=== PATIENT | female | born 1950 | race Caucasian/White ===

== ENCOUNTER 2017-02-04 16:19 | Emergency (ER) | payer MEDICARE, BC ==
--- NOTE | ~2017-02-04 | CR72 ---
[facility] A Service of [facility] / [facility] RADIOLOGY TEXT RESULTS PATIENT: KVNG CESPEDES LOCATION: SED : 52 UNIT #: [id number] AGE: [address]: Edil Chiang MD SEX: F ORDER DR: [id number] [place] [id number] MR#: [id number] Acc #: [id number] NAME: KVNG CESPEDES : 1950 SEX: F STUDY DATE/TIME: 02/04/2017 15:42 UNIT: SED ROOM: STUDY DESCRIPTION: CR Chest Single View Portable Attending Physician: Edil Chaing M.D. Ordering Physician: Edil Chiang M.D. Primary Care Physician: Bharathi Arrington M.D. MEDICAL IMAGING REPORT This report is preliminary unless electronic signature is present. EXAM Portable chest 02/04/2017 INDICATIONS Shortness of air that started earlier this morning. History of hypertension and atrial fibrillation. COMPARISON 03/19/2014 FINDINGS A single AP portable view of the chest shows both lungs to be clear. The heart is normal in size. The mediastinal contour is normal. No significant bone abnormalities are seen. IMPRESSION Normal portable chest. Dictated by... Delta Taylor Jr., M.D. THIS IS AN ELECTRONICALLY VERIFIED REPORT Delta Taylor Jr., M.D. at 02/05/2017 4:47 PM [place]/radha TD: 02/04/2017 17:07 JOB #: [id number] MEDICAL IMAGING REPORT Page 1 of 1
--- NOTE | ~2017-02-04 | EKG ---
PATIENT: KVNG CESPEDES UNIT #: [id number] Ventricular Rate: 67 BPM Atrial Rate: 67 BPM P-R Interval: 124 ms QRS Duration: 84 ms Q-T Interval: 374 ms QTC Calculation(Bezet): 395 ms P [place]: 71 degrees Calculated R [place]: -11 degrees Calculated T [place]: -12 degrees Diagnosis Line: Sinus rhythm with marked sinus arrhythmia Diagnosis Line: Nonspecific T wave abnormality Diagnosis Line: Otherwise normal ECG Diagnosis Line: When compared with ECG of 04-FEB-2017 15:10, Diagnosis Line: (unconfirmed) Diagnosis Line: Sinus rhythm has replaced Atrial fibrillation Diagnosis Line: Vent. rate has decreased BY 92 BPM Diagnosis Line: ST no longer depressed in Anterolateral leads Diagnosis Line: T wave inversion no longer evident in Anterior Diagnosis Line: leads Diagnosis Line: Confirmed by HALEY DESOUZA MD ([id number]) on 02/11/2017 Diagnosis Line: 11:54:03 AM INTERPRETING MD: DEO PERKINS
--- NOTE | ~2017-02-04 | EKG ---
PATIENT: KVNG CESPEDES UNIT #: [id number] Ventricular Rate: 159 BPM Atrial Rate: 187 BPM QRS Duration: 78 ms Q-T Interval: 254 ms QTC Calculation(Bezet): 413 ms Calculated R [place]: -9 degrees Calculated T [place]: -127 degrees Diagnosis Line: Atrial fibrillation with rapid ventricular Diagnosis Line: response Diagnosis Line: Posterior infarct , age undetermined Diagnosis Line: ST and T wave abnormality, consider inferolateral Diagnosis Line: ischemia or digitalis effect Diagnosis Line: Abnormal ECG Diagnosis Line: When compared with ECG of 07-AUG-2013 22:00, Diagnosis Line: Atrial fibrillation has replaced Sinus rhythm Diagnosis Line: Vent. rate has increased BY 83 BPM Diagnosis Line: T wave inversion now evident in Anterolateral Diagnosis Line: leads Diagnosis Line: Confirmed by HALEY DESOUZA MD ([id number]) on 02/11/2017 Diagnosis Line: 11:53:40 AM INTERPRETING MD: EDO PERKINS
[2017-02-04 15:31] LABS: BASOPHIL# 0.1 X10e3 (0-0.3); BASOPHIL% 1.1 % (0-2.5); EOSINOPHIL# 0.1 X10e3 (0-0.7); EOSINOPHIL% 1.4 % (0.0-7.0); HEMATOCRIT 44.5 % (35.0-45.0); HEMOGLOBIN 14.5 gm/dL (12.0-16.0); LYMPHOCYTE# 1.8 X10e3 (1.0-3.5); LYMPHOCYTE% 20.7 % (17.0-45.0); MEAN CELL VOLUME 90.5 FL (83-96); MEAN CORPUSCULAR HEMOGLOBIN 29.5 PG (28-34); MEAN CORPUSCULAR HGB CONC 32.6 g/dL (30-36); MEAN PLATELET VOLUME 9.2 FL (6.5-11.5); MONOCYTE# 0.7 X10e3 (0-1.0); MONOCYTE% 8.3 % (3.0-12.0); NEUTROPHIL# 5.8 X10e3 (1.5-7.1); NEUTROPHIL% 68.5 % (40-75); PLATELET COUNT 187 X10e3 (140-420); RED BLOOD COUNT 4.92 X10e (3.90-5.30); RED CELL DISTRIBUTION WIDTH 16.3 % (11.0-15.5); WHITE BLOOD COUNT 8.5 X10e3 (4.0-10.5)
[2017-02-04 15:32] LABS: DIFF IND NO
[2017-02-04 15:45] LABS: POC - CKMB 1.1 ng/mL (0.0-7.9); POC - TROPONIN <0.05 ng/mL (<=0.05)
[2017-02-04 15:45] LABS: INR 1.2; PROTHROMBIN TIME (PATIENT) 13.5 SECONDS (9.5-12.4)
[2017-02-04 15:55] LABS: ALBUMIN SERUM 4.1 g/dL (3.5-5.0); BILIRUBIN, DIRECT 0.1 mg/dL (0.0-0.2); BILIRUBIN,INDIRECT 0.7 mg/dL (0.0-0.9); BILIRUBIN,TOTAL 0.8 mg/dL (0.2-2.0); CALCIUM SERUM 8.8 mg/dL (8.4-10.2); GLOM FILT RATE Estimated 59.1 mL/min (>60); POTASSIUM 3.7 mmol/L (3.5-5.1); PROTEIN TOTAL SERUM 6.9 g/dL (6.0-8.3)
[~2017-02-04 16:19] MED LIST: AMIODARONE HCL400 MG PO; ASPIRIN81 M1 PO; ASPIRIN81 MG PO; ATACAND PO; B12 HEALTH1000 MCG/1 PO; BAYER CHEWABLE81 MG PO; CALCIUM500 MG PO; CELEBREX PO; CERTAGEN PO; COUMADIN PO; FLEXERIL10 MG PO; GNP THERAPEUTI1 EACH PO; KCL PO; KLOR-CON PO; LASIX PO; LIPITOR PO; LIPITOR40 MG PO; MAGNESIUM200 MG PO; MULTAQ400 MG PO; MULTIVITAMIN1 UDCAP PO; NITRO-DUR 0.1M0.1 MG SL; PERCOCET5/325 PO; PLAVIX PO; PLENDIL PO; PRADAXA150 MG; PRADAXA150 MG PO; PRILOSEC PO; PRILOSEC20 M1 PO; PRILOSEC20 MG PO; SINGULAIR; SINGULAIR PO; SPIRIVA18 MCG INH; SYMBICORT INH; SYMBICORT80 INH; TIKOSYN250 MCG PO; VICODIN 5/500 T1 TAB PO; VITAMIN B-121000 MCG PO; VITAMIN C500 M1 PO; XANAX1 MG PO; ZYRTEC; ZYRTEC PO; ZYRTEC10 M2 PO; [UNRECOGNIZED DRUG - OTHER]
== END 2017-02-04 22:18 ==
LOC: SED 16:19
PROVIDERS: Emergency Medicine
DX: I48.91 Unspecified atrial fibrillation (principal); J44.9 Chronic obstructive pulmonary disease, unspecified; I10 Essential (primary) hypertension
CPT/HCPCS: 36415; 71010; 80048; 80076; 82553; 83880; 84484; 85025; 85610; 93005; 96374; 99284; 99291; J0282